=== PATIENT | male | born 1995 | race Caucasian/White ===

== ENCOUNTER → 2020-03-05 | Outpatient (CLI) | payer SELFPAY ==
[~2020-03-05] MED LIST: CONCERTA54 MG PO; HYDROCODONE BIT1 T11 PO
== END | disposition home or self-care (01) ==
LOC: COVID19 09:42
PROVIDERS: ATTEND Internal Medicine
DX: Z20.828 Contact with and (suspected) exposure to other viral communicable diseases (principal)

== ENCOUNTER 2023-10-05 05:32 | Emergency (ER) | payer OTHER ==
[~2023-10-05] VITALS: Ht 177.8 cm; Wt 108.9 kg
== END 2023-10-05 06:44 | disposition home or self-care (01) ==
LOC: ED 05:32
DX: M25.512 Pain in left shoulder (principal); M54.6 Pain in thoracic spine; V89.2XXA Person injured in unspecified motor-vehicle accident, traffic, initial encounter; Y93.89 Activity, other specified; Y92.410 Unspecified street and highway as the place of occurrence of the external cause; Y99.8 Other external cause status